=== PATIENT | female | born 1980 | race Caucasian/White ===

== ENCOUNTER 2017-07-06 08:29 | Emergency (ER) | payer OTHER ==
[~2017-07-06] VITALS: Ht 160 cm; Wt 67.1 kg
[2017-07-06] MEDS ORDERED: SILVER SULFADIAZINE 1 % TOPICAL CREAM 50GM TOP ONE (08:45)
[2017-07-06 08:47] VITALS: BP 142/89
[2017-07-06] MEDS ORDERED: KETOROLAC TROMETH 60MG/2ML VIAL IM ONE (09:00)
== END 2017-07-06 09:26 | disposition home or self-care (01) ==
LOC: ER 08:29
DX: T23.202A Burn of second degree of left hand, unspecified site, initial encounter (principal); X19.XXXA Contact with other heat and hot substances, initial encounter; Y93.89 Activity, other specified; Y99.8 Other external cause status; Y92.89 Other specified places as the place of occurrence of the external cause
CPT/HCPCS: 16000; 96372; 99284; J1885